=== PATIENT | male | born 1995 | race Two or more races ===

== ENCOUNTER 2021-03-18 15:32 | Inpatient (IN) | payer MEDICAID ==
[~2021-03-18] VITALS: Ht 170.2 cm; Wt 67.1 kg
[2021-03-18] MEDS ORDERED: ASPIRIN 81MG TABLET PO ONE (16:30)
[2021-03-18] MEDS ORDERED: NITROGLYCERIN 0.4MG TABLET SL SL PRN (16:30)
[2021-03-18 17:21] LABS: BASOPHILS % 0.4 % (0.0-2.0); EOSINOPHILS % 0.3 % (0.0-5.0); HEMATOCRIT. 46.3 % (42.0-52.0); HEMOGLOBIN. 15.5 g/dL (14.0-18.0); LYMPHOCYTES % 24.4 % (20.0-50.0); MEAN CORPUSCULAR HEMOGLOBIN 28.4 pg (28.0-32.0); MEAN CORPUSCULAR VOLUME 84.8 fL (80.0-94.0); MEAN PLATELET VOLUME 8.6 fl (7.4-10.4); MONOCYTES % 8.9 % (2.0-8.0); PLATELET 317 x1000/uL (130-400); RED BLOOD CELL COUNT 5.46 mill/uL (4.7-6.1)
[2021-03-18 17:23] LABS: CHLORIDE 104 mEq/L (98-107)
[2021-03-18 17:26] LABS: ETHANOL BLOOD < 10 mg/dL
[2021-03-18 17:29] LABS: D-DIMER < 0.19 mg/L FEU (<0.50); PROTHROMBIN TIME 10.6 sec (9.6-11.0)
[2021-03-18 18:06] LABS: *AMPHETAMINES SCREEN URINE NEGATIVE (NEGATIVE); *BARBITURATES SCREEN URINE NEGATIVE (NEGATIVE); *BENZODIAZEPINES SCREEN URINE NEGATIVE (NEGATIVE); *COCAINE SCREEN URINE NEGATIVE (NEGATIVE); METHADONE URINE SCREEN NEGATIVE (NEGATIVE); OPIATES URINE SCREEN NEGATIVE (NEGATIVE); PHENCYCLIDINE URINE SCREEN NEGATIVE (NEGATIVE)
[2021-03-18 18:07] LABS: CANNABINOID URINE SCREEN NEGATIVE (NEGATIVE)
[2021-03-18] MEDS ORDERED: ACETAMINOPHEN 325MG TABLET PO PRN (19:00)
[2021-03-18] MEDS ORDERED: ATORVASTATIN CALCIUM 10MG TABLET PO SCH (21:00)
[2021-03-18 23:26] VITALS: BP 141/91
[2021-03-19] VITALS: BP 143/90
[2021-03-19 04:00] VITALS: BP 136/85
[2021-03-19 06:50] LABS: BASOPHILS % 0.6 % (0.0-2.0); EOSINOPHILS % 1.2 % (0.0-5.0); HEMOGLOBIN. 14.2 g/dL (14.0-18.0); LYMPHOCYTES % 50.6 % (20.0-50.0); MEAN CORPUSCULAR HEMOGLOBIN 28.7 pg (28.0-32.0); MEAN CORPUSCULAR VOLUME 85.2 fL (80.0-94.0); MEAN PLATELET VOLUME 8.6 fl (7.4-10.4); NEUTROPHILS % 35.6 % (40.0-76.0); PLATELET 259 x1000/uL (130-400); RED BLOOD CELL COUNT 4.93 mill/uL (4.7-6.1); RED CELL DISTRIBUTION WIDTH 13.3 % (11.6-14.6)
[2021-03-19 06:56] LABS: CHLORIDE 105 mEq/L (98-107)
[2021-03-19 08:00] VITALS: BP 136/79
[2021-03-19] MEDS ORDERED: PNEUMOCOCCAL 23-VAL P-SAC VAC 0.5 ML IM ONE (08:00)
[2021-03-19] MEDS ORDERED: ASPIRIN 81MG TABLET PO SCH (09:00)
[2021-03-19] MEDS ORDERED: INFLUENZA VACCINE 05/PF 0.5 ML SYRINGE IM ONE (10:00)
[2021-03-19 12:00] VITALS: BP 137/83
[2021-03-19 12:01] VITALS: BP 137/83
[2021-03-19 13:38] VITALS: BP 137/83
== END 2021-03-19 13:35 | disposition home or self-care (01) | DRG 756 ==
LOC: ER 15:32 → ENRESERV 20:42 → 7EST 22:22
PROVIDERS: ADMIT Internal Medicine; ATTEND Internal Medicine
DX: F41.0 Panic disorder [episodic paroxysmal anxiety] (principal); F17.210 Nicotine dependence, cigarettes, uncomplicated; Z20.822 Contact with and (suspected) exposure to COVID-19
CPT/HCPCS: 36415; 71045; 80048; 80053; 80305; 80320; 82962; 83880; 84439; 84443; 84484; 85025; 85379; 87426; 90686; 90732; 93005; 99285; G0480

== ENCOUNTER 2021-12-23 16:26 | Emergency (ER) | payer SELFPAY ==
[~2021-12-23] VITALS: Ht 167.6 cm; Wt 55.0 kg
[2021-12-23] MEDS ORDERED: SODIUM CHLORIDE 0.9% 1,000 ML IV ONE (18:15)
[2021-12-23 18:33] LABS: BASOPHILS % 0.4 % (0.0-2.0); EOSINOPHILS % 0.2 % (0.0-5.0); HEMATOCRIT. 40.8 % (42.0-52.0); LYMPHOCYTES % 34.4 % (20.0-50.0); MEAN CORPUSCULAR VOLUME 84.5 fL (80.0-94.0); MEAN PLATELET VOLUME 8.7 fl (7.4-10.4); PLATELET 337 x1000/uL (130-400); RED BLOOD CELL COUNT 4.83 mill/uL (4.7-6.1)
[2021-12-23 18:40] LABS: CHLORIDE 102 mEq/L (98-107)
[2021-12-23 18:51] LABS: ETHANOL BLOOD 15 mg/dL
[2021-12-23 21:44] VITALS: BP 149/98
== END 2021-12-23 21:45 | disposition home or self-care (01) ==
LOC: ER 16:26
DX: R00.2 Palpitations (principal); R07.89 Other chest pain; F17.290 Nicotine dependence, other tobacco product, uncomplicated
CPT/HCPCS: 36415; 71045; 80053; 80320; 83880; 84484; 85025; 93005; 96360; 99285; J7030; G0480